=== PATIENT | male | born 1955 | race Asian ===

== ENCOUNTER 2019-04-25 07:29 | Day surgery (SDC) | payer OTHER ==
[~2019-04-25] VITALS: Ht 180.3 cm; Wt 84.4 kg
[2019-04-25] MEDS ORDERED: MIDAZOLAM 2 MG/2 ML VIAL ONE (09:08)
[2019-04-25] MEDS ORDERED: fentaNYL 0.05 MG/ML VIAL ONE (09:09)
[2019-04-25] MEDS ORDERED: LIDOCAINE 2% 100 MG/5 ML UJET TP ONE (09:09)
[2019-04-25] MEDS ORDERED: MIDAZOLAM 2 MG/2 ML VIAL IVP ONE (09:55)
[2019-04-25] MEDS ORDERED: fentaNYL 0.05 MG/ML VIAL IVP ONE (09:55)
== END 2019-04-25 10:40 | disposition home or self-care (01) ==
LOC: MDS 07:29 → MMU 07:31 → MDS 10:40
PROVIDERS: ATTEND Internal Medicine Gastroenterology
DX: Z12.11 Encounter for screening for malignant neoplasm of colon (principal); Z98.890 Other specified postprocedural states
CPT/HCPCS: 45378; J2250; J3010